=== PATIENT | male | born 1955 | race African-American/Black ===

== ENCOUNTER 2018-01-17 09:51 | Observation (INO) ==
[2018-01-17] MEDS ORDERED: ACETAMINOPHEN 325 MG TABLET PO PRN (12:36)
[2018-01-17] MEDS ORDERED: DEXTROSE 50% 25 GM/50 ML VIAL IV PRN (12:43)
[2018-01-17] MEDS ORDERED: GLUCAGON 1 MG VIAL IM PRN (12:43)
[2018-01-17] MEDS ORDERED: hydrALAZINE 20 MG/1 ML VIAL IV ONE (12:49)
[2018-01-17 13:29] LABS: Basophils # 0.1 10*3/uL (0.0-0.2); Basophils % 0.9 % (0.0-0.8); Eosinophils # 0.1 10*3/uL (0.0-0.87); Hematocrit 43.4 VOL% (42.0-52.0); Hemoglobin 13.9 GM/DL (14.0-18.0); Immature Granulocytes % 0.2 %; Immature Granulocytes Absolute 0.01 #; Lymphocytes # 1.1 10*3/uL (1.4-4.0); Lymphocytes % 20.7 % (21.2-54.2); Mean Corpuscular Hemoglobin 28 PG (27-34); Mean Corpuscular Volume 86.6 FL (87-102); Mean Platelet Volume 13.2 FL (9.6-12.0); Monocytes # 0.5 10*3/uL (0.11-0.8); Monocytes % 9.5 % (1.7-12.7); Neutrophils # 3.7 10*3/uL (1.4-7.4); Neutrophils % 66.7 % (38.7-73.9); Platelet Count 212 T/CUMM (130-400); Red Blood Count 5.01 MC/CUMM (3.8-5.5); Red Cell Distribution Width 14.6 % (9.3-17.3); White Blood Count 5.5 T/CUMM (4-12)
[2018-01-17] MEDS ORDERED: LABETALOL 100 MG/20 ML VIAL IV ONE (13:44)
[2018-01-17] MEDS ORDERED: LABETALOL 20 MG/4 ML SYRINGE IV PRN (13:53)
[2018-01-17] MEDS ORDERED: NIFEdipine 10 MG CAPSULE PO PRN (13:54)
[2018-01-17 13:59] LABS: Calcium 8.5 MG/DL (8.5-10.1); Potassium 3.9 MMOL/L (3.5-5.1)
[2018-01-17 14:19] LABS: CKMB % 1.3 %
[2018-01-17 14:54] LABS: Apearance,Urine CLEAR (Clear); Bilirubin,Urine Negative (Negative); Blood, Urine Small mg/dL (Negative); Glucose,Urine (UA) Negative (Negative); Ketones,Urine 5 mg/dL (Negative); Mucus,Urine Occasional /LPF (Occasional); Nitrite,Urine Negative (Negative); Protein,Urine Negative; RBC,Urine 1 /HPF (0-4); Urine Color Straw (Yellow); Urine Urobilinogen < 2.0 EU/DL (0.2-1.0); WBC,Urine 1 /HPF (0-6)
[2018-01-17] MEDS ORDERED: hydrALAZINE 20 MG/1 ML VIAL IV PRN (15:09)
[2018-01-17] MEDS: FUROSEMIDE 40 MG/4 ML VIAL IV SCH (15:28)
[2018-01-17] MEDS: LISINOPRIL 20 MG TABLET PO SCH (15:28)
[2018-01-17 16:30] LABS: CKMB % 1.3 %
[2018-01-17] MEDS: INSULIN LISPRO 100 UNIT/ML SUBCUT SCH ×2 (19:12→21:14)
[2018-01-17 20:37] LABS: CKMB % 1.2 %
[2018-01-17] MEDS ORDERED: CARVEDILOL 3.125 MG TABLET PO SCH (21:00)
[2018-01-17] MEDS: CARVEDILOL 6.25 MG TABLET PO SCH (21:14)
[2018-01-18] MEDS ORDERED: METOPROLOL TARTRATE 5 MG/5 ML VIAL IV ONE (02:30)
[2018-01-18] MEDS ORDERED: DILTIAZEM 25 MG/5 ML VIAL IV ONE (03:00)
[2018-01-18 05:59] LABS: Basophils # 0.1 10*3/uL (0.0-0.2); Basophils % 0.9 % (0.0-0.8); Eosinophils # 0.2 10*3/uL (0.0-0.87); Hematocrit 42.6 VOL% (42.0-52.0); Hemoglobin 13.8 GM/DL (14.0-18.0); Immature Granulocytes % 0.2 %; Immature Granulocytes Absolute 0.01 #; Lymphocytes # 1.1 10*3/uL (1.4-4.0); Lymphocytes % 19.5 % (21.2-54.2); Mean Corpuscular HGB Conc 32.4 GM/DL (32-36); Mean Corpuscular Hemoglobin 28 PG (27-34); Mean Corpuscular Volume 85.4 FL (87-102); Mean Platelet Volume 13.1 FL (9.6-12.0); Monocytes # 0.7 10*3/uL (0.11-0.8); Monocytes % 12.2 % (1.7-12.7); Neutrophils # 3.6 10*3/uL (1.4-7.4); Neutrophils % 64.2 % (38.7-73.9); Platelet Count 179 T/CUMM (130-400); Red Blood Count 4.99 MC/CUMM (3.8-5.5); Red Cell Distribution Width 14.6 % (9.3-17.3); White Blood Count 5.6 T/CUMM (4-12)
[2018-01-18 06:37] LABS: Calcium 8.8 MG/DL (8.5-10.1); Potassium 3.7 MMOL/L (3.5-5.1); Risk Ratio 2.61; Thyroid Stimulating Hormone 0.517 uIU/ml (0.358-3.74)
[2018-01-18] MEDS: FUROSEMIDE 40 MG/4 ML VIAL IV SCH ×2 (08:54→16:43)
[2018-01-18] MEDS: PANTOPRAZOLE 40 MG TABLET PO SCH (08:54)
[2018-01-18] MEDS: INSULIN LISPRO 100 UNIT/ML SUBCUT SCH ×4 (08:55→20:54)
[2018-01-18] MEDS: LISINOPRIL 20 MG TABLET PO SCH (08:55)
[2018-01-18] MEDS: CARVEDILOL 6.25 MG TABLET PO SCH (08:55)
[2018-01-18] MEDS ORDERED: SPIRONOLACTONE 25 MG TABLET PO SCH (09:00)
[2018-01-18] MEDS: ASPIRIN EC 81 MG TABLET PO SCH (12:39)
[2018-01-18] MEDS: CARVEDILOL 12.5 MG TABLET PO SCH (16:43)
[2018-01-19 05:45] LABS: Basophils # 0.1 10*3/uL (0.0-0.2); Basophils % 1.1 % (0.0-0.8); Eosinophils # 0.3 10*3/uL (0.0-0.87); Eosinophils % 6.3 % (0.00-10.9); Hematocrit 44.9 VOL% (42.0-52.0); Hemoglobin 14.7 GM/DL (14.0-18.0); Immature Granulocytes % 0.4 %; Immature Granulocytes Absolute 0.02 #; Lymphocytes # 1.4 10*3/uL (1.4-4.0); Lymphocytes % 25.9 % (21.2-54.2); Mean Corpuscular HGB Conc 32.7 GM/DL (32-36); Mean Corpuscular Hemoglobin 28 PG (27-34); Mean Corpuscular Volume 85.7 FL (87-102); Mean Platelet Volume 12.6 FL (9.6-12.0); Monocytes # 0.6 10*3/uL (0.11-0.8); Monocytes % 11.4 % (1.7-12.7); Neutrophils # 2.9 10*3/uL (1.4-7.4); Neutrophils % 54.9 % (38.7-73.9); Platelet Count 208 T/CUMM (130-400); Red Blood Count 5.24 MC/CUMM (3.8-5.5); Red Cell Distribution Width 14.1 % (9.3-17.3); White Blood Count 5.3 T/CUMM (4-12)
[2018-01-19 06:17] LABS: Calcium 8.4 MG/DL (8.5-10.1); Osmolality,Calculated 285.4 MOS/KG (273-304); Potassium 3.5 MMOL/L (3.5-5.1)
[2018-01-19] MEDS: INSULIN LISPRO 100 UNIT/ML SUBCUT SCH ×4 (08:53→21:11)
[2018-01-19] MEDS: LISINOPRIL 20 MG TABLET PO SCH (08:54)
[2018-01-19] MEDS: ASPIRIN EC 81 MG TABLET PO SCH (08:54)
[2018-01-19] MEDS: SPIRONOLACTONE 50 MG TABLET PO SCH (08:54)
[2018-01-19] MEDS: CARVEDILOL 12.5 MG TABLET PO SCH (08:54)
[2018-01-19] MEDS: FUROSEMIDE 40 MG/4 ML VIAL IV SCH ×2 (08:55→16:14)
[2018-01-19] MEDS ORDERED: LISINOPRIL 20 MG TABLET PO SCH (13:03)
[2018-01-19] MEDS: POTASSIUM CHLORIDE 20 MEQ TABLET PO SCH (13:04)
[2018-01-19] MEDS: ASCORBIC ACID 500 MG TABLET PO SCH ×2 (13:04→21:10)
[2018-01-19] MEDS: PANTOPRAZOLE 40 MG TABLET PO SCH (13:08)
[2018-01-19] MEDS ORDERED: MAGNESIUM SULF RIDER 2 GM in PREMIX 1 EACH IV PRN (13:53)
[2018-01-19] MEDS ORDERED: diphenhydrAMINE CAP 25 MG CAPSULE PO ONE (13:53)
[2018-01-19] MEDS ORDERED: DIAZEPAM 5 MG TABLET PO ONE (13:53)
[2018-01-19] MEDS ORDERED: POTASSIUM CHLORIDE RIDER 10 MEQ in PREMIX 1 EACH IV PRN (13:53)
[2018-01-19] MEDS: CARVEDILOL 25 MG TABLET PO SCH (16:14)
[2018-01-20 05:24] LABS: Basophils # 0.1 10*3/uL (0.0-0.2); Basophils % 1.3 % (0.0-0.8); Eosinophils # 0.4 10*3/uL (0.0-0.87); Eosinophils % 6.5 % (0.00-10.9); Hematocrit 43.4 VOL% (42.0-52.0); Hemoglobin 14.8 GM/DL (14.0-18.0); Immature Granulocytes % 0.2 %; Immature Granulocytes Absolute 0.01 #; Lymphocytes # 1.5 10*3/uL (1.4-4.0); Lymphocytes % 26.6 % (21.2-54.2); Mean Corpuscular HGB Conc 34.1 GM/DL (32-36); Mean Corpuscular Hemoglobin 28 PG (27-34); Mean Platelet Volume 12.2 FL (9.6-12.0); Monocytes # 0.7 10*3/uL (0.11-0.8); Monocytes % 12.9 % (1.7-12.7); Neutrophils # 2.9 10*3/uL (1.4-7.4); Neutrophils % 52.5 % (38.7-73.9); Platelet Count 211 T/CUMM (130-400); Red Blood Count 5.23 MC/CUMM (3.8-5.5); Red Cell Distribution Width 14.1 % (9.3-17.3); White Blood Count 5.6 T/CUMM (4-12)
[2018-01-20 05:56] LABS: Calcium 8.4 MG/DL (8.5-10.1); Osmolality,Calculated 284.4 MOS/KG (273-304); Potassium 3.8 MMOL/L (3.5-5.1)
[2018-01-20] MEDS ORDERED: diphenhydrAMINE CAP 50 MG CAPSULE ONE (07:49)
[2018-01-20] MEDS ORDERED: DIAZEPAM 5 MG TABLET ONE (07:50)
[2018-01-20] MEDS: ASPIRIN EC 81 MG TABLET PO SCH (08:34)
[2018-01-20] MEDS: CARVEDILOL 25 MG TABLET PO SCH ×2 (08:34→16:51)
[2018-01-20] MEDS: PANTOPRAZOLE 40 MG TABLET PO SCH (08:35)
[2018-01-20] MEDS: SPIRONOLACTONE 50 MG TABLET PO SCH (08:45)
[2018-01-20] MEDS: FUROSEMIDE 40 MG/4 ML VIAL IV SCH ×2 (08:45→15:04)
[2018-01-20] MEDS: POTASSIUM CHLORIDE 20 MEQ TABLET PO SCH (08:45)
[2018-01-20] MEDS: INSULIN LISPRO 100 UNIT/ML SUBCUT SCH ×3 (08:45→16:19)
[2018-01-20] MEDS: ASCORBIC ACID 500 MG TABLET PO SCH (08:46)
[2018-01-20] MEDS ORDERED: LIDOCAINE 1% 20 ML VIAL ONE (08:46)
[2018-01-20] MEDS ORDERED: HEPARIN/NACL 0.9% 2 UNITS/ML 1,000 ML IV ONE (08:46)
[2018-01-20] MEDS ORDERED: fentaNYL 100 MCG/2 ML VIAL ONE (08:59)
[2018-01-20] MEDS ORDERED: MIDAZOLAM 2 MG/2 ML VIAL ONE (08:59)
[2018-01-20] MEDS ORDERED: VERAPAMIL 5 MG/2 ML VIAL ONE (08:59)
[2018-01-20] MEDS ORDERED: NITROGLYCERIN DRIP 50 MG/250 ML BOTTLE IV ONE (08:59)
[2018-01-20] MEDS ORDERED: ENOXAPARIN 30 MG/0.3 ML SYRINGE ONE (09:20)
[2018-01-20] MEDS ORDERED: ISOSORBIDE MONONITRATE 30 MG TABLET PO SCH (10:00)
[2018-01-20 15:38] VITALS: BP 167/85
== END 2018-01-20 18:45 | disposition home or self-care (01) ==
LOC: N.2W 10:48 → SUATTDRO 10:48 → INTOOBSV 10:48 → N.TELEN 14:37
PROVIDERS: ADMIT Internal Medicine; ATTEND Internal Medicine Infectious Disease
PROC: CLCCHCL (ICD-10-PCS; 2018-01-20 09:15)